=== PATIENT | female | born 1975 | race Hispanic/Latino ===

== ENCOUNTER 2025-01-19 13:11 | Emergency (ER) | payer SELFPAY ==
[~2025-01-19] VITALS: Ht 162.6 cm; Wt 108.6 kg
[2025-01-19 13:43] VITALS: BP 136/69; PULSE 67; RESP 19; TEMP 98.7; O2SAT 98
[2025-01-19 13:59] LABS: LEUKOCYTE ESTERASE ,URINE 1+ (NEGATIVE); NITRATE,URINE NEGATIVE (NEGATIVE)
[2025-01-19 14:01] LABS: APPEARANCE,URINE CLEAR; UA COLOR YELLOW
[2025-01-19] MEDS ORDERED: TORADOL ONE (14:03)
[2025-01-19] MEDS ORDERED: ROBAXIN PO ONE (14:03)
[2025-01-19] MEDS: TORADOL IM STA (14:10)
[2025-01-19] MEDS: ROBAXIN PO STA (14:11)
[2025-01-19 14:17] VITALS: BP 130/81; PULSE 62; RESP 19; TEMP 98.7; O2SAT 98
== END 2025-01-19 14:29 | disposition home or self-care (01) ==
LOC: ER 13:11
DX: S39.012A Strain of muscle, fascia and tendon of lower back, initial encounter (principal); Z79.899 Other long term (current) drug therapy; Z88.1 Allergy status to other antibiotic agents; Z88.5 Allergy status to narcotic agent; X58.XXXA Exposure to other specified factors, initial encounter; Y93.89 Activity, other specified; Y92.89 Other specified places as the place of occurrence of the external cause; Y99.8 Other external cause status
CPT/HCPCS: 99283; 96372; 87086; 81001; J1885